=== PATIENT | female | born 1995 | race Hispanic/Latino ===

== ENCOUNTER → 2017-06-12 | Emergency (ER) | payer MEDICAID ==
[~2017-06-12] MED LIST: ONDANSETRON ODT 4 MG TAB ONE
[2017-06-12 22:36] LABS: RAPID GROUP A STREP NEGATIVE (NEGATIVE)
[2017-06-12 23:06] LABS: BASOPHILS % (AUTO) 0.4 % (0.0-5.0); EOSINOPHILS % (AUTO) 0.1 % (0.0-8.0); HEMATOCRIT 37.7 % (36-48); LYMPHOCYTES % (AUTO) 11.5 % (21.0-51.0); MEAN CORPUSCULAR HEMOGLOBIN 28.8 pg (27.0-33.0); MEAN CORPUSCULAR HGB CONC 34.1 g/dL (32.0-36.0); MEAN CORPUSCULAR VOLUME 84.6 fL (79-99); MONOCYTES % (AUTO) 6.5 % (3.0-13.0); NEUTROPHILS % (AUTO) 81.5 % (40.0-77.0); PLATELET COUNT (AUTO) 184 K/uL (130-400); RED BLOOD CELL COUNT(AUTO) 4.45 MIL/uL (4.00-5.50); RED CELL DISTRIBUTION WIDTH 13.7 % (11.0-15.5); WHITE BLOOD COUNT (AUTO) 12.6 K/uL (4.8-10.8)
[2017-06-12 23:18] LABS: CREATININE 0.9 mg/dL (0.5-1.5); POTASSIUM 3.2 mmol/L (3.5-5.1)
[2017-06-12 23:19] LABS: BILIRUBIN,URINE Negative (NEGATIVE); COLOR,URINE Yellow (YELLOW); GLUCOSE, URINE (UA) Negative (NEGATIVE); KETONES,URINE >=80 mg/dL (NEGATIVE); LEUKOCYTE ESTERASE ,URINE Trace (NEGATIVE); NITRATE,URINE Negative (NEGATIVE); OCCULT BLOOD,URINE Negative (NEGATIVE); PROTEIN,URINE Negative (NEGATIVE)
[2017-06-12 23:23] LABS: ALBUMIN 3.7 g/dL (3.5-5.0); BILIRUBIN,TOTAL 0.6 mg/dL (0.2-1.0); TOTAL PROTEIN, SERUM 7.6 g/dL (6.0-8.3)
[2017-06-12 23:24] LABS: APPEARANCE,URINE CLEAR (CLEAR)
[2017-06-12 23:28] LABS: BACTERIA,URINE None Seen /HPF (None Seen); RBC,URINE None Seen /HPF (0-1); SQUAMOUS EPITHELIAL CELL,UR Rare /LPF (0-2); WBC,URINE 0-1 /HPF (0-1)
== END ==
LOC: EDH 20:53
DX: J11.1 Influenza due to unidentified influenza virus with other respiratory manifestations (principal); R11.2 Nausea with vomiting, unspecified; Z79.899 Other long term (current) drug therapy
CPT/HCPCS: 36415; 80053; 81001; 85025; 87804; 87880

== ENCOUNTER 2018-08-09 09:19 | Emergency (ER) | payer MEDICAID | END 2018-08-09 09:41 | disposition home or self-care (01) | LOC: EDH 09:19 | DX: J06.9 Acute upper respiratory infection, unspecified (principal); J30.9 Allergic rhinitis, unspecified ==

== ENCOUNTER 2018-10-28 00:25 | Emergency (ER) | payer MEDICAID ==
[2018-10-28] MEDS ORDERED: CLINDAMYCIN 600 MG/D5% WATER 50 ML IV ONE (01:24)
[2018-10-28 01:43] LABS: BASOPHILS % (AUTO) 0.6 % (0.0-5.0); EOSINOPHILS % (AUTO) 8.6 % (0.0-8.0); HEMATOCRIT 39.6 % (36-48); LYMPHOCYTES % (AUTO) 22.6 % (21.0-51.0); MEAN CORPUSCULAR HEMOGLOBIN 27.9 pg (27.0-33.0); MEAN CORPUSCULAR HGB CONC 33.4 g/dL (32.0-36.0); MEAN CORPUSCULAR VOLUME 83.5 fL (79-99); MONOCYTES % (AUTO) 4.2 % (3.0-13.0); PLATELET COUNT (AUTO) 211 K/uL (130-400); RED BLOOD CELL COUNT(AUTO) 4.75 MIL/uL (4.00-5.50); WHITE BLOOD COUNT (AUTO) 15.1 K/uL (4.8-10.8)
[2018-10-28 01:51] LABS: CREATININE 0.6 mg/dL (0.5-1.5); POTASSIUM 4.7 mmol/L (3.5-5.1)
[2018-10-28 01:55] LABS: ALBUMIN 3.6 g/dL (3.5-5.0); BILIRUBIN,TOTAL 0.4 mg/dL (0.2-1.0); TOTAL PROTEIN, SERUM 7.9 g/dL (6.0-8.3)
== END 2018-10-28 03:09 | disposition home or self-care (01) ==
LOC: EDH 00:25
DX: L02.413 Cutaneous abscess of right upper limb (principal); L03.113 Cellulitis of right upper limb; L73.9 Follicular disorder, unspecified; Z79.899 Other long term (current) drug therapy
CPT/HCPCS: 36415; 73130; 80053; 85025; 96365; 99285; J3490

== ENCOUNTER 2019-06-01 12:14 | Emergency (ER) | payer MEDICAID | END 2019-06-01 14:29 | disposition home or self-care (01) | LOC: EDH 12:14 | DX: J10.1 Influenza due to other identified influenza virus with other respiratory manifestations (principal) | CPT/HCPCS: 87804 ==

== ENCOUNTER 2020-05-10 18:06 | Emergency (ER) | payer MEDICAID ==
[2020-05-10 20:56] LABS: RAPID GROUP A STREP NEGATIVE (NEGATIVE)
[2020-05-10] MEDS ORDERED: GUAIFENESIN SUGAR-FREE 100 MG/5 ML UDCUP ONE (21:55)
== END 2020-05-10 22:00 | disposition home or self-care (01) ==
LOC: EDH 18:06
DX: J30.9 Allergic rhinitis, unspecified (principal)
CPT/HCPCS: 81025; 87804; 87880

== ENCOUNTER 2021-06-05 16:47 | Emergency (ER) | payer MEDICAID ==
[~2021-06-05] VITALS: Ht 165.1 cm; Wt 63.5 kg
[2021-06-05 17:45] VITALS: BP 129/69
[2021-06-05] MEDS ORDERED: DEXAMETHASONE 4 MG TAB ONE (17:56)
[2021-06-05] MEDS ORDERED: DEXAMETHASONE 4 MG TAB PO SCH (18:00)
[2021-06-05] MEDS ORDERED: FEXO180T94 PO (18:00)
[2021-06-05] MEDS ORDERED: MOME17SP4 NS (18:00)
== END 2021-06-05 18:04 | disposition home or self-care (01) ==
LOC: EDH 16:47
DX: J30.9 Allergic rhinitis, unspecified (principal); Z20.822 Contact with and (suspected) exposure to COVID-19
CPT/HCPCS: 87635; 87804 ×2; 99283; C9803; J8540

== ENCOUNTER 2021-11-17 23:10 | Emergency (ER) | payer MEDICAID ==
[~2021-11-17] VITALS: Ht 162.6 cm; Wt 63.5 kg
[~2021-11-17 23:10] MED LIST changes: +FEXO180T94 PO; +MOME17SP4 NS; -ONDANSETRON ODT 4 MG TAB ONE
[2021-11-17 23:17] VITALS: BP 115/75
[2021-11-17] MEDS ORDERED: FLUTICASONE PROPIONATE 50MCG/SPRAY 16 GM BOTTLE EN SCH (23:30)
[2021-11-17] MEDS ORDERED: LORATADINE 10 MG TABLET PO SCH (23:30)
[2021-11-17] MEDS ORDERED: IBUPROFEN 600 MG TABLET PO ONE (23:30)
[2021-11-17] MEDS ORDERED: ACETAMINOPHEN 500 MG TABLET PO ONE (23:30)
[2021-11-17] MEDS ORDERED: D-ME118S47 PO (23:52)
[2021-11-17] MEDS ORDERED: IBUP-2070 PO (23:52)
[2021-11-17] MEDS ORDERED: ACET-66 PO (23:52)
== END 2021-11-18 00:01 | disposition home or self-care (01) ==
LOC: EDH 23:10
DX: U07.1 COVID-19 (principal); Z79.899 Other long term (current) drug therapy
CPT/HCPCS: 87635; 87804 ×2; 87880; 99284; C9803

== ENCOUNTER 2023-05-31 12:16 | Emergency (ER) | payer MEDICAID ==
[~2023-05-31] VITALS: Ht 162.6 cm; Wt 72.6 kg
[~2023-05-31 12:16] MED LIST changes: +ACET-66 PO; +BROM118S48 PO; +IBUP-2070 PO
[2023-05-31 13:02] VITALS: BP 111/67; PULSE 104; RESP 18
[2023-05-31 13:42] LABS: RAPID GROUP A STREP negative (NEGATIVE)
[2023-05-31 13:56] LABS: COVID19 (SARS ANTIGEN RAPID) PRESUMPTIVE NEGATIVE (NEGATIVE); INFLUENZA TYPE B Negative For Type B (NEGATIVE)
[2023-05-31 13:59] LABS: INFLUENZA TYPE A Positive For Type A (NEGATIVE)
[2023-05-31] MEDS ORDERED: OSEL75 PO (16:40)
[2023-05-31] MEDS ORDERED: BENZ200C53 PO (16:41)
== END 2023-05-31 17:07 | disposition home or self-care (01) ==
LOC: EDH 12:16
DX: J10.1 Influenza due to other identified influenza virus with other respiratory manifestations (principal); Z20.822 Contact with and (suspected) exposure to COVID-19
CPT/HCPCS: 87426; 87804; 87880